=== PATIENT | male | born 1990 | race African-American/Black ===

== ENCOUNTER 2017-04-29 19:56 | Emergency (ER) | payer SELFPAY ==
[~2017-04-29] VITALS: Ht 175.3 cm; Wt 75.0 kg
[2017-04-29 19:59] VITALS: TEMP 98.3
[2017-04-29 23:37] VITALS: BP 111/58
[2017-04-30] MEDS ORDERED: PERCOCET 325 MG1 TA2 PO (00:24)
[2017-04-30 01:00] VITALS: PULSE 73
== END 2017-04-30 01:02 | disposition home or self-care (01) ==
LOC: COL.ER 19:56
DX: S62.315A Displaced fracture of base of fourth metacarpal bone, left hand, initial encounter for closed fracture (principal); W22.01XA Walked into wall, initial encounter; Y92.009 Unspecified place in unspecified non-institutional (private) residence as the place of occurrence of the external cause

== ENCOUNTER 2017-05-08 11:52 | Day surgery (SDC) | payer OTHER ==
[~2017-05-08] VITALS: Ht 175.3 cm; Wt 73.9 kg
[~2017-05-08 11:52] MED LIST: PERCOCET 325 MG1 TA2 PO
[2017-05-08] MEDS ORDERED: NORCO 325 MG-7.1 TAB PO (12:27)
[2017-05-08 12:28] VITALS: BP 119/63; PULSE 73; TEMP 98.2
[2017-05-08 17:49] VITALS: BP 93/68; PULSE 45; TEMP 98.2
[2017-05-08 18:04] VITALS: BP 98/49; PULSE 47; TEMP 98.2
[2017-05-08 18:19] VITALS: BP 103/52; PULSE 52; TEMP 98.3
[2017-05-08 18:34] VITALS: BP 100/55; PULSE 50; TEMP 98
[2017-05-08 19:35] VITALS: BP 130/78; PULSE 68
== END 2017-05-08 19:55 | disposition home or self-care (01) ==
LOC: SDCO 11:52 → SURG 17:50 → SDCO 19:55
DX: S62.142A Displaced fracture of body of hamate [unciform] bone, left wrist, initial encounter for closed fracture (principal); S63.055A Dislocation of other carpometacarpal joint of left hand, initial encounter; F17.210 Nicotine dependence, cigarettes, uncomplicated; J45.909 Unspecified asthma, uncomplicated; Z82.5 Family history of asthma and other chronic lower respiratory diseases; W22.09XA Striking against other stationary object, initial encounter
CPT/HCPCS: OP; J0690; J2250; J2704; J2795; J3010; J7120